=== PATIENT | female | born 1995 | race Caucasian/White ===

== ENCOUNTER 2017-02-18 10:27 | Emergency (ER) | payer SELFPAY ==
[2017-02-18 10:32] VITALS: BP 116/75; BMI 18.8
--- NOTE | 2017-02-18 10:59 | DR.GENAD ---
HPI - PCP Primary Care Physician: NFD - Complaint/Symptoms Chief Complaint Doctors Comments: Patient is complaining of a sore throat for the past three days getting worst with her unable to sleep due to the pain. States she thinks she is constipated because she has been having small stool wit pellets with last bowel movemnt yesterday. States she does not have a local doctor. She has an implant in her left arm and states she is not . States she has been having chills but denies cold, cough or vomiting. Her appetite has been decreased. States her last period was two months ago and her periods are usually irregular. She denies any recent trauma. Chief Complaint:: PT. C/O SORE THROAT X 3 DAYS AND CONSTIPATION SINCE MONDAY. PT. HAS TAKEN OTC MEDICATIONS FOR SORE THROAT BUT NO OTC FOR CONSTIPATION. - Nurses notes reviewed Nurses Notes Review: Yes - Source History Provided: Patient - Mode of Arrival Mode of Arrival: Ambulatory - Timing Onset of Chief Complaint: 02/15/17 Came on: Gradually - Duration Duration: Constant How lon Duration: Days - Location Location: sore throat - Severity Severity: Moderate - Modifying Factors Worsens:: eating Improves:: nothing PMH - PMH Past Medical History: No Past Surgical History: Yes Surgical History: - Family History History of Family Medical Conditions: Yes Family Medical History: Cancer - Social History Does patient currently use any type of tobacco product: Yes Have you used tobacco products in the last 12 months: Yes Type of Tobacco Use: Cigarettes Does any household member use tobacco: Yes Alcohol Use: None Do you use any recreational Drugs:: No Lives With: Significant Other Lives Where: Home - infectious screening In the last 2 months have you had wt loss of >10#?: NO Have you had fever, night sweats or hemotysis?: No Have you traveled outside the country in the last 6 months?: No Isolation: Standard ROS - Review of Systems Constitutional: No Symptoms Reported, Chills. negative: See HPI, Diaphoresis, Fever, Malaise, Weakness, Irritable, Fatigue, Loss of Appetite, Other Eyes: No Symptoms Reported. negative: See HPI, Eye Pain, Blurred Vision, Tearing, Discharge, Photophobia, Diplopia, Other ENTM: No Symptoms Reported, Nose Discharge, Nose Congestion, Throat Pain. negative: See HPI, Ear Pain, Ear Discharge, Pulling on Ears, Hearing Loss, Nose Pain, Epistaxis, Mouth Pain, Mouth Swelling, Loose Teeth, Drooling, Throat Swelling, Ear Foreign Body Respiratoy: No Symptoms Reported. negative: See HPI, Productive Cough, Non- Productive Cough, Moist Cough, Dry Cough, Hacking Cough, Barking Cough, Brassy Cough, Orthopnea, Short of Breath, Stridor, Wheezing, Hemoptysis, Other Cardiovascular: No Symptoms Reported. negative: See HPI, Chest Pain, Edema, Palpitations, Syncope, Cyanosis, Skin Mottling, Other Gastrointestinal/Abdominal: No Symptoms Reported, Abdominal Pain, Constipation, Nausea. negative: See HPI, Diarrhea, Vomiting, Food Intolerance, Other Genitourinary: No Symptoms Reported. negative: See HPI, Discharge, Dysuria, Frequency, Hematuria, Pain, Bleeding, Other Neurological: No Symptoms Reported. negative: See HPI, Anxiety, Depressed, Emotional Problems, Headache, Numbness, Paresthesia, Pre-existing Deficit, Seizure, Tingling, Tremors, Weakness, Dizziness, Problems Walking, Speech Problem, Other Musculoskeletal: No Symptoms Reported Integumentary: No Symptoms Reported Hematologic/Lymphatic: No Symptoms Reported Endocrine: No Symptoms Reported Psychiatric: No Symptoms Reported PE - Vital Signs Vitals: Temperature 98.5 F Pulse Rate 100 Respiratory Rate 17 Blood Pressure 116/75 O2 Sat by Pulse Oximetry 99 - General Limitations: No Limitations General Appearance: Alert, In Distress (mild) - Head Head Exam: Normal Inspection, Atraumatic, Normocephalic - Eyes Eye exam: Normal Appearance, PERRL, EOMI. negative: Scleral Icterus, Conjunctival Injection, Nystagmus, Miosis, Mydrasis, Periorbital Swelling, Periorbital Tenderness, Other - ENT ENT Exam: Normal Exam, Normal Oropharynx, Normal External Ear Exam, Mucous Membranes Moist, TM's Normal Bilaterally External Ear Exam: Normal External Inspection TM/Canal Exam: Bilateral Normal Nose Exam: Normal Nose Exam (nasal congesetion) Mouth Exam: Normal Inspection Throat Exam: Normal Inspection - Neck Neck Exam: Normal Inspection, Full ROM, Trachea Midline - Chest Chest Inspection: Normal Inspection, Symmetric Chest Wall Rise - Respiratory Respiratory Exam: Normal Lung Sounds Bilat Respiratory Exam: Bilateral Clear to Auscultation - Cardiovascular Cardiovascular Exam: Regular Rate, Normal Rhythm, Normal Heart Sounds. negative : Bradycardia, Tachycardia, Irregular Rhythm, Systolic Murmur, Diastolic Murmur , Rubs, Gallop, Clicks, JVD, +S1, +S2, +S3, +S4, Other - Abdominal Exam Abdominal Exam: Normal Inspection, Normal Bowel Sounds, Soft, Tenderness ( slight periumbilical tenderness). negative: Distention, Guarding, Rebound, Rigidity, Dimnished Bowel Sounds, Hyperactive Bowel Sounds, Hypoactive Bowel Sounds, Organomegaly, Trauma, Incision, Ascites, Mass, Bruit, Pulsatile Mass, Hernia, Other Abdominal Tenderness: Suprapubic, Mild - Extremities Extremities Exam: Normal Inspection, Full ROM, Normal Capillary Refill. negative: Tenderness, Edema, Joint Swelling, Calf Tenderness, Other - Back Back Exam: Normal Inspection, Full ROM. negative: Tenderness, (R) CVA Tenderness, (L) CVA Tenderness, Muscle Spasm, Paraspinal Tenderness, Vertebral Tenderness, Rashes, (R) Sciatic Notch Tenderness, (L) Sciatic Notch Tendern, (R ) Straight Leg Raise, (L) Straight Leg Raise, Other - Neurologic Neurological Exam: Alert, Oriented X3, CN II-XII Intact, Normal Gait, Reflexes Normal - Psychiatric Psychiatric Exam: Normal Affect, Normal Mood. negative: Depressed, Agitated, Anxious, Flat Affect, Manic, Homicidal Ideation, Suicidal Ideation, Other - Skin Skin Exam: Warm, Dry, Intact, Normal Color. negative: Rash, Cyanosis, Diaphoresis, Erythema, Pallor, Mottled, Other ROR - Labs Reviewed Laboratory Results Reviewed?: Yes (all labs and x-ray results reviewed and discussed with patient) Laboratory: Streptococcus Screen Negative (NEGATIVE) 02/18/17 11:03 - XRAY XRAY Interpreted by: Radiologist (abdominal series: No acute cardiopulmonary process. Nonobstructive bbowel gas pattern without radiographic evidence of pneumoeritoneum) - Diagnosis Discharge Problem: Pharyngitis, Abdominal pain Constipation Qualifiers: Constipation type: other constipation type Qualified Code(s): K59.09 - Other constipation Sinusitis Qualifiers: Sinusitis location: maxillary - Discharge Plan Disposition: 01 HOME, SELF-CARE Condition: Stable Prescriptions: Amoxicillin/Potassium Clav [Augmentin 875-125 Tablet] 1 tab PO Q12H #20 tab Cetirizine HCl [Zyrtec] 10 mg PO DAILY #30 tab Linaclotide [Linzess] 145 mcg PO QAM PRN #14 cap PRN Reason: - Follow ups/Referrals Follow ups/Referrals: NFD,None [Primary Care Provider] - 3 days HENRY ALCARAZ [STAFF PHYSICIAN] - 3 days - Instructions Instructions: Constipation, Adult, [id number], Sinusitis, Adult, Pharyngitis
--- NOTE | 2017-02-18 11:48 | RAD ---
ACUTE ABDOMINAL SERIES CLINICAL HISTORY: 21-year-old female with periumbilical and right lower abdominal pain. COMPARISON: None. FINDINGS: PA chest radiograph demonstrates normal cardiopericardial silhouette. There is no focal consolidatio n, pleural effusion or pneumothorax. Pulmonary vascularity is normal. Abdominal radiographs demonstrate a nonobstructive bowel gas pattern. Gas and stool are seen through out the colon. There is no small bowel distention. There is no radiographic evidence of pneumoperito neum. Imaged osseous structures are intact. Soft tissues are unremarkable. IMPRESSION: 1. No acute cardiopulmonary process. 2. Nonobstructive bowel gas pattern without radiographic evidence of pneumoperitoneum. Reported By:
[2017-02-18] MEDS ORDERED: DULCOLAX TAB EC 5 MG PO ONE (11:50)
[2017-02-18] MEDS ORDERED: CHRONULAC ONE (11:54)
[2017-02-18] MEDS ORDERED: AUGMENTIN 875 MG/125 MG TAB PO STA (11:54)
[2017-02-18] MEDS ORDERED: CHRONULAC PO SCH (12:00)
[2017-02-18] MEDS ORDERED: AUGMENTIN 500 MG/125 MG TAB PO ONE ×2 (12:01→12:02)
== END 2017-02-18 12:09 | disposition home or self-care (01) ==
LOC: ER 10:36
DX: J32.9 Chronic sinusitis, unspecified (principal); K59.09 Other constipation; J02.9 Acute pharyngitis, unspecified; R10.84 Generalized abdominal pain
CPT/HCPCS: 74022; 87070; 87880; 99282; 99283